=== PATIENT | male | born 1960 | race Caucasian/White ===

== ENCOUNTER → 2017-12-13 | Outpatient (CLI) | payer OTHER ==
[~2017-12-13] MED LIST: CHOLESTEROL; UNABLE
[2017-12-13 17:06] LABS: ALBUMIN 4.3 gm/dl (3.4-5.0); ALT/SGPT 43 U/L (12-78); AST/SGOT 28 U/L (15-37); BLOOD UREA NITROGEN 22 mg/dl (7-18); CALCIUM 9.3 mg/dl (8.5-10.1); CARBON DIOXIDE 27 mmol/L (21-32); CREATININE 1.19 mg/dl (0.60-1.40); GLUCOSE,FASTING 89 mg/dl (70-99); POTASSIUM 3.7 mmol/L (3.5-5.1); SODIUM 139 mmol/L (136-145)
[2017-12-13 17:08] LABS: ALKALINE PHOSPHATASE 75 U/L (45-117); CHOLESTEROL 163 mg/dl (0-200); LDL CHOLESTEROL CALCULATED 102 mg/dl; TOTAL PROTEIN 7.8 gm/dl (6.4-8.2)
== END | disposition home or self-care (01) ==
LOC: C.LABPBG 15:41
PROVIDERS: ATTEND Physician Assistant
DX: Z00.00 Encounter for general adult medical examination without abnormal findings (principal); Z86.39 Personal history of other endocrine, nutritional and metabolic disease